=== PATIENT | male | born 2000 | race Caucasian/White ===

== ENCOUNTER 2024-09-10 08:24 | Emergency (ER) | payer SELFPAY ==
[2024-09-10 08:44] VITALS: BP 137/77; PULSE 90; RESP 16; TEMP 98.8; BMI 35.4
[2024-09-10] MEDS ORDERED: DEXAMETHASONE SOD PHOSPHATE 10 MG/1 ML VIAL ONE (09:20)
[2024-09-10] MEDS ORDERED: KETOROLAC TROMETHAMINE 30 MG/1 ML VIAL ONE (09:20)
[2024-09-10] MEDS: DEXAMETHASONE SOD PHOSPHATE 10 MG/1 ML VIAL PO ONE (09:25)
[2024-09-10] MEDS: KETOROLAC TROMETHAMINE 30 MG/1 ML VIAL IM ONE (09:30)
== END 2024-09-10 14:28 | disposition home or self-care (01) ==
LOC: FER 08:24
PROC: 3E0233Z Introduction of Anti-inflammatory into Muscle, Percutaneous Approach (ICD-10-PCS; principal; 2024-09-10)
DX: J02.9 Acute pharyngitis, unspecified (principal); R50.9 Fever, unspecified
CPT/HCPCS: 87651; 99284-25; J1100